=== PATIENT | female | born 1995 | race Caucasian/White ===

== ENCOUNTER 2018-08-29 19:23 | Emergency (ER) | payer OTHER ==
[2018-08-29] MEDS ORDERED: IBUPROFEN 600 MG TAB PO ONE (19:52)
--- NOTE | 2018-08-29 20:49 | EDPHY ---
H & P Time Seen by Provider: 08/29/18 19:48 HPI/ROS: Chief complaint: Left 5th finger injury History of present illness: 23-year-old female sent for left 5th finger injury. She was catching a Frisbee when it struck her finger. She has noticed a deformity to the distal joint. She cannot move it. She has a superficial wound. No abnormal coolness or paresthesias in the finger. Smoking Status: Never smoked Physical Exam: General: Alert, nontoxic. Skin: There is an abrasion to the pad of the left 5th finger. It does not extend deep. Musculoskeletal: Deformity at the DIP joint. She cannot move it. The rest the fingers unremarkable. Vascular: Capillary refill brisk in the left 5th finger. Neurologic: Sensation intact left 5th finger. Constitutional: Initial Vital Signs Temperature (C) 37.2 C 08/29/18 19:43 Heart Rate 79 08/29/18 19:43 Respiratory Rate 20 08/29/18 19:43 Blood Pressure 130/79 H 08/29/18 19:43 O2 Sat (%) 92 08/29/18 19:43 O2 Delivery Mode Room Air Allergies/Adverse Reactions: No Known Allergies Allergy (Unverified 08/29/18 19:43) Home Medications: Medication Instructions Recorded NK [No Known Home Meds] 08/29/18 MDM/Departure - MDM Imaging Results: Imaging Impressions Finger X-Ray 08/29/18 19:48 Impression: DIP joint subluxation of the left fifth digit. Query subcutaneous radiopaque soft tissue foreign body. Finger X-Ray 08/29/18 20:13 Impression: 1. No fracture. 2. Postreduction. 3. Hyperdense material at the radial aspect of the distal phalanx of the left 5th digit, present on x-ray before reduction and appears to be superficially located at the volar aspect of the soft tissue. This could represent a radiopaque soft tissue foreign body. Imaging: I viewed and interpreted images myself Procedures: Procedure: Dislocation reduction. The dislocation of the left 5th DIP joint was reduced using traction technique without complications. Post reduction the patient's neurovascular exam is normal. Post reduction x-ray demonstrates reduction of the joint to the anatomic position. The procedure was performed by myself. Procedure: Splint placement. A finger splint was applied. After application of the splint I returned and re- examined the patient. The splint was adequately immobilizing the joint and distal to the splint the patient's circulation and sensation was intact. Medications Given: Discontinued Medications Ibuprofen (Motrin) 600 mg PO EDNOW ONE Stop: 08/29/18 19:53 Last Admin: 08/29/18 20:11 Dose: 600 mg ED Course/Re-evaluation: Patient seen under the supervision of my secondary supervising physician Dr. Juan Uriostegui. Patient presents for a left 5th finger injury. The finger is neurovascularly intact. X-ray confirms a dislocation. I have offered anesthesia including a digital block but she has declined. It has been easily reduced. She tolerated it well. She remains neurovascularly intact. She is splinted. Home care is discussed. She is referred to a hand surgeon for further evaluation and care. Return precautions are given. Patient voiced understanding and agreement with plan. Differential Diagnosis: Included but not limited to sprain or strain, bony fracture, joint dislocation - Depart Disposition: Home, Routine, Self-Care Clinical Impression: Dislocated finger Qualifiers: Encounter type: initial encounter Qualified Code(s): S63.259A - Unspecified dislocation of unspecified finger, initial encounter Condition: Good Instructions: Jammed Finger (ED) Additional Instructions: Follow-up with a hand surgeon next week for continued evaluation and care Use [id number] ibuprofen as directed as needed for pain If symptoms worsen or new symptoms develop return to the emergency room for recheck Referrals: JASON ABDALLA [Other] - As per Instructions Christina Rivera MD [Medical Doctor] - As per Instructions
[2018-08-29 21:00] VITALS: BP 130/80
== END 2018-08-29 20:58 | disposition home or self-care (01) ==
PROC: 0PSVXZZ Reposition Left Finger Phalanx, External Approach (ICD-10-PCS; principal; 2018-08-29)
DX: S63.257A Unspecified dislocation of left little finger, initial encounter (principal); W23.0XXA Caught, crushed, jammed, or pinched between moving objects, initial encounter; Y92.9 Unspecified place or not applicable; Y99.9 Unspecified external cause status; Y93.74 Activity, frisbee